=== PATIENT | male | born 1955 | race Caucasian/White ===

== ENCOUNTER 2025-05-20 06:20 | Day surgery (SDC) | payer MEDICARE ==
[~2025-05-20 06:20] MED LIST: ALBU90OI INH; ATOR40TA PO; FLUT.05NI; FLUTICASONE PROPIONA INH; LISI20 PO; TAMS.4ER PO
[2025-05-20] MEDS ORDERED: NS 1,000 ML IV ONE ×2 (06:26→06:56)
[2025-05-20 06:48] VITALS: BP 180/91
[2025-05-20] MEDS ORDERED: Naloxone HCl 0.4MG / ML 1ML Vial ONE (06:55)
[2025-05-20] MEDS ORDERED: FentaNYL Citrate 50 MCG/ML 2 ML Injection ONE (06:56)
[2025-05-20] MEDS ORDERED: Flumazenil 0.1 MG / ML 5ML Vial ONE (06:56)
[2025-05-20] MEDS ORDERED: Midazolam HCl 1MG / ML 2ML Vial ONE (06:56)
[2025-05-20 09:05] VITALS: BP 137/112
--- NOTE | 2025-05-20 09:09 | NUR ---
PT RETURNED TO RECOVERY ROOM IN BED. LEFT FLANK SITES SOFT NON-TENDER WITH NO HEMATOMA, NO BLEEDING AND INTACT DRESSINGS. CALL LIGHT IN REACH.
[2025-05-20 09:15] VITALS: BP 158/87
--- NOTE | 2025-05-20 09:15 | NUR ---
PT'S IN ROOM.
--- NOTE | 2025-05-20 09:20 | NUR ---
PT SITTING UP DRINKING ORANGE JUICE AND EATING CRACKERS.
--- NOTE | 2025-05-20 09:21 | NUR ---
NO CHANGES TO L FLANK SITES.
[2025-05-20 09:30] VITALS: BP 175/87
--- NOTE | 2025-05-20 09:43 | NUR ---
NO CHANGES TO LEFT FLANK SITES. PT DENIES ANY LEFT FLANK PAIN.
[2025-05-20 09:45] VITALS: BP 152/80
--- NOTE | 2025-05-20 09:49 | NUR ---
PT ADMINISTERED HIS LISINOPRIL 20 MG ONCE DAILY PILL.
[2025-05-20 09:58] VITALS: BP 162/86
--- NOTE | 2025-05-20 10:11 | NUR ---
NO CHANGES TO L FLANK SITES. DISCHARGE INSTRUCTIONS REVIEWED ALL QUESTIONS ANSWERED. 20 G IV DISCONINUED FROM LEFT AC WITH INTACT CANNULA. PT ESCORTED OUT VIA WHEELCHAIR ESCORT.
== END 2025-05-20 10:10 | disposition home or self-care (01) ==
LOC: MHTC 06:20 → CT 07:00 → MHTC 10:10
DX: C64.2 Malignant neoplasm of left kidney, except renal pelvis (principal); I10 Essential (primary) hypertension; J44.9 Chronic obstructive pulmonary disease, unspecified; I73.9 Peripheral vascular disease, unspecified; N40.0 Benign prostatic hyperplasia without lower urinary tract symptoms; C61 Malignant neoplasm of prostate; E78.5 Hyperlipidemia, unspecified; Z88.0 Allergy status to penicillin; Z90.49 Acquired absence of other specified parts of digestive tract
CPT/HCPCS: 50593; 77013; 99152; 99153; C2618; J2250; J2312; J3010; J7030; Q9967